=== PATIENT | female | born 1990 | race Caucasian/White ===

== ENCOUNTER 2018-09-17 16:07 | Inpatient (IN) | payer OTHER ==
[~2018-09-17] VITALS: Ht 162.5 cm; Wt 74.5 kg
--- NOTE | ~2018-09-17 | EKG ---
[place], [place] ELECTROCARDIOGRAM REPORT NAME: GERMAIN ALDANA UNIT #: [id number] ROOM: 425 DOCTOR: MAURA DRAFT REPORT BIRTHDATE: [birth year] [facility] Test Date: 2018-09-17 Test Time: 19:18:07 Pat Name: GERMAIN ALDANA Department: Room: 425 1 Gender: F Gang Rider: PARISA RESP : 1990 Requested By: PAMELA LACY Order Number: [id number] Reading MD: Kurtis Fairchild MD Measurements Intervals [place] Rate: 91 P: 72 SC: 150 QRS: 59 QRSD: 95 T: 65 QT: 350 QTc: 431 Interpretive Statements Sinus rhythm Electronically Signed On 09-18-2018 11:46:39 PDT by Kurtis Fairchild MD CM:EKGRPT:ELECTROCARDIOGRAM REPORT [id number] PAMELA AGUILA DRAFT REPORT PAMELA LACY DO
[2018-09-17 18:00] VITALS: BP 119/57
[2018-09-17 19:15] LABS: BASO % 0.3 % (0.0-1.0); EOS % 0.2 % (1.0-4.0); HEMATOCRIT 50.1 % (37.0-47.0); HEMOGLOBIN 16.8 g/dl (12.0-16.0); LYMPH # 2.5 10*3/uL (1.3-4.4); LYMPH % 17.2 % (27.0-41.0); MEAN CELL VOLUME 91.1 fl (81.0-99.0); MEAN CORPUSCULAR HGB 30.5 pg (27.0-31.0); MEAN CORPUSCULAR HGB CONC 33.5 g/dl (33.0-37.0); MEAN PLATELET VOLUME 10.9 fl (9.6-12.3); MONO % 6.7 % (3.0-9.0); NEUT # 10.7 10*3/uL (2.3-7.9); NEUT % 75.1 % (47.0-73.0); PLATELET COUNT AUTOMATED 360 10*3/uL (130-400); RED CELL DISTRI WIDTH 12.7 % (0-14.5); WHITE BLOOD COUNT 14.3 10*3/uL (4.8-10.8)
[2018-09-17 19:16] LABS: BILIRUBIN 1+ (NEGATIVE); BLOOD NEGATIVE (NEGATIVE); CLARITY CLEAR (CLEAR); COLOR YELLOW (YELLOW); GLUCOSE NEGATIVE (NEGATIVE); KETONE 1+ (NEGATIVE); LEUKO ESTERASE TRACE (NEGATIVE); NITRITE NEGATIVE (NEGATIVE); PH 5.5 (5.0-9.0); SPECIFIC GRAVITY 1.025 (1.005-1.030)
[2018-09-17 19:22] LABS: EPITHELIAL CELLS 21-30; MUCOUS 2+
[2018-09-17 19:23] LABS: BACTERIA TRACE
[2018-09-17 19:25] LABS: URINE AMPHETAMINES < 1000 (1000ng/ml); URINE BARBITURATES < 200 (200ng/ml); URINE BENZODIAZEPINES < 200 (200ng/ml); URINE CANNABINOIDS (THC) > 50 (50ng/ml); URINE COCAINE > 300 (300ng/ml); URINE METHADONE < 300 (300ng/ml); URINE OPIATES < 300 (300ng/ml)
[2018-09-17 19:29] LABS: INTERNATIONAL NORM RATIO 1.1 (2.0-3.5)
[2018-09-17 19:29] LABS: URINE PHENCYCLIDINE < 25 (25ng/ml)
[2018-09-17 19:32] LABS: ALBUMIN 4.2 gm/dl (3.1-4.5); ALKALINE PHOSPHATASE 83 U/L (45-117); BUN 9 mg/dl (7-24); CHLORIDE 106 mmol/L (98-107); CREATININE 0.78 mg/dL (0.55-1.02); POTASSIUM 3.4 mmol/L (3.5-5.1); SGOT/AST 9 IU/L (3-35); SGPT/ALT 21 U/L (12-78); SODIUM 138 mmol/L (136-145); TOTAL PROTEIN 8.3 gm/dL (6.4-8.2)
[2018-09-17 19:34] LABS: BETA-HCG, QUANT < 1.0 mIU/mL (1-3); ETHYL ALCOHOL < 3.0 mg/dl (<3)
[2018-09-17 20:00] VITALS: BP 123/72
[2018-09-18] VITALS: BP 111/56
[2018-09-18 08:00] VITALS: BP 98/58
[2018-09-18 16:00] VITALS: BP 150/90
[2018-09-18 20:00] VITALS: BP 117/56
== END 2018-09-18 23:35 | disposition left against medical advice (07) | DRG 894 ==
LOC: 4E 16:07
PROVIDERS: Internal Medicine; ADMIT Internal Medicine
DX: F11.23 Opioid dependence with withdrawal (principal); F14.23 Cocaine dependence with withdrawal; M79.10 Myalgia, unspecified site; R19.7 Diarrhea, unspecified; R00.1 Bradycardia, unspecified; D72.829 Elevated white blood cell count, unspecified; D75.1 Secondary polycythemia; E87.6 Hypokalemia; F17.200 Nicotine dependence, unspecified, uncomplicated; Z53.21 Procedure and treatment not carried out due to patient leaving prior to being seen by health care provider; F41.9 Anxiety disorder, unspecified; G47.33 Obstructive sleep apnea (adult) (pediatric); Z71.6 Tobacco abuse counseling; Y93.89 Activity, other specified; Y92.89 Other specified places as the place of occurrence of the external cause; Y99.8 Other external cause status; V49.9XXA Car occupant (driver) (passenger) injured in unspecified traffic accident, initial encounter; Z83.3 Family history of diabetes mellitus